=== PATIENT | male | born 2000 | race Caucasian/White ===

== ENCOUNTER 2021-02-16 22:13 | Emergency (ER) | payer OTHER ==
--- NOTE | 2021-02-16 23:31 | ED Physician Documentation ---
History of Present Illness - Stated complaint Stated Complaint: ETOH, N/V - Chief complaint Chief Complaint: Abd Pain - History obtained from History obtained from: EMS - Additonal information Additional information: 20-year-old man, previously healthy, presents with alcohol intoxication this evening. EMS reports that he took 10 shots of fireball and EMS was called due to acute intoxication. patient vomited on scene. intermittently tearful, laughing, grabbing at staff, and spitting. no further vomiting in the ED. EMS reports no trauma or head injury. history limited by intoxication. Review of Systems Unable to obtain: Intoxicated PD PAST MEDICAL HISTORY - Present Medications Home Medications: Ambulatory Orders Medication Instructions Recorded Confirmed No Known Home Medications 02/16/21 02/16/21 - Allergies Allergies/Adverse Reactions: Allergies Allergy/AdvReac Type Severity Reaction Status Date / Time No Known Drug Allergies Allergy Verified 02/16/21 22:29 PD ED PE NORMAL - Vitals Vital signs reviewed: Yes - General General: No acute distress, Well developed/nourished, Other (alert, sitting up in bed, intermittently laughing and tearful. clinically intoxicated) - HEENT HEENT: Atraumatic, PERRL, EOMI, Moist mucous membranes, Pharynx benign - Neck Neck: Supple, no meningeal sign - Cardiac Cardiac: RRR - Respiratory Respiratory: No respiratory distress, Clear bilaterally - Abdomen Abdomen: Non tender, Non distended - Derm Derm: Normal color - Extremities Extremities: No deformity - Neuro Neuro: No motor deficit, No sensory deficit - Psych Psych: Other (clinically intoxicated. labile affect (tearful then laughing). patient attempted to hold this physician's hand throughout exam despite verbal redirection. ) Results - Vitals Vitals: Oxygen O2 Source Room air - Labs Labs: Laboratory Tests 02/16/21 22:24 POC Whole Bld Glucose 111 H PD MEDICAL DECISION MAKING - ED course ED course: father at the bedside requesting that the patient be discharged home. Patient is still intoxicated but tolerating PO fluids, sitting up in bed, in NAD, and the father admits to drinking tonight as well though he appears clinically sober and is ambulating with steady gait. They will have a pedicab driver come pick them up. recommend oral hydration and to limit alcohol intake in future. return precautions given. Departure - Departure Disposition: 01 Home, Self Care Clinical Impression: Alcohol intoxication Condition: Stable Instructions: ED Alcohol Intoxication Comments: You are seen in the emergency department for alcohol intoxication. Please try to monitor your intake in future and drink lots of water when drinking alcohol. The recommended daily amount for adult men is 2 servings daily. Please follow up with your primary doctor. Return to the emergency department if you have other concerns. Discharge Date/Time: 02/17/21 00:08
[2021-02-16 23:39] VITALS: BP 138/77
== END 2021-02-17 00:08 | disposition home or self-care (01) ==
LOC: EDBD 22:13 → ED 22:13
DX: F10.129 Alcohol abuse with intoxication, unspecified (principal)
CPT/HCPCS: 99282; 99283

== ENCOUNTER 2022-05-27 06:33 | Day surgery (SDC) | payer OTHER ==
[~2022-05-27 06:33] MED LIST: CEFAZOLIN 2G/50ML 0.9% NS 2 GM/50 ML BAG IV ONE
--- NOTE | 2022-05-27 06:53 | ANESTHESIA ---
Pre-Anesthesia VS, & Labs - Diagnosis chronic cholecystitis - Procedure laparoscopic cholecystectomy Height: 5 ft 9 in - NPO >8 hours - Lab Results Lab results reviewed: Yes Home Medications and Allergies Home Medications: Ambulatory Orders Lisinopril [Zestril] 10 mg PO DAILY 05/20/22 Lisinopril [Zestril] 10 mg PO DAILY 05/20/22 Allergies/Adverse Reactions: Allergies Allergy/AdvReac Type Severity Reaction Status Date / Time No Known Drug Allergies Allergy Verified 02/16/21 22:29 Anes History & Medical History - Anesthetic History Anesthesia Complications: reports: No previous complications Family history of Anesthesia Complications: Denies Family history of Malignant Hyperthermia: Denies - Medical History Cardiovascular: reports: Hypertension Pulmonary: reports: None Gastrointestinal: reports: Cholelithiasis Urinary: reports: None Musculoskeletal: reports: None Endocrine/Autoimmune: reports: None Skin: reports: None Exam General: Alert, Oriented x3, Cooperative Dental: WNL Mouth Openin Fingerbreadth Neck Mobility: Normal Mallampati classification: II Thyromental Distance: 4-6 cm Respiratory: Lungs clear, Normal breath sounds, No respiratory distress Cardiovascular: Regular rate Neurological: Normal speech Mental/Cognitive Status: Alert/Oriented X3, Normal for patient Cognitive Status: Within normal limits Plan Anesthesia Type: General Consent for Procedure(s) Verified and Reviewed: Yes Code Status: Attempt Resuscitation ASA classification: 2-Mild systemic disease Is this case an emergency?: No
[2022-05-27] MEDS ORDERED: LACTATED RINGERS 1,000 ML IV ONE ×2 (06:57→09:48)
[2022-05-27] MEDS ORDERED: MIDAZOLAM 2 MG/2 ML VIAL ONE (07:05)
[2022-05-27] MEDS ORDERED: BUPIVACAINE 0.25% PF 30 ML VIAL ONE (07:05)
[2022-05-27] MEDS ORDERED: fentaNYL 100 MCG/2 ML VIAL ONE (07:05)
[2022-05-27] MEDS ORDERED: LIDOCAINE-PF 2% 10 ML AMP SUBQ ONE (07:06)
[2022-05-27] MEDS ORDERED: PROPOFOL 200 MG/20 ML VIAL IVP ONE ×2 (07:06→07:47)
[2022-05-27] MEDS ORDERED: ROCURONIUM 50 MG/5 ML VIAL ONE ×2 (07:07→08:17)
[2022-05-27] MEDS ORDERED: HYDROmorphone 0.5 MG/0.5 ML SYRINGE IVP PRN ×2 (07:17→09:32)
[2022-05-27] MEDS ORDERED: NALOXONE 0.4 MG/ML VIAL IVP PRN (07:17)
[2022-05-27] MEDS ORDERED: MORPHINE 2 MG/ML CARPUJECT IVP PRN (07:17)
[2022-05-27] MEDS ORDERED: fentaNYL 100 MCG/2 ML VIAL IVP PRN (07:17)
[2022-05-27] MEDS ORDERED: ONDANSETRON 4 MG/2 ML VIAL IVP PRN ×2 (07:17→09:32)
[2022-05-27] MEDS ORDERED: ePHEDrine 50 MG/ML VIAL IVP PRN (07:17)
[2022-05-27] MEDS ORDERED: METOCLOPRAMIDE 10 MG/2 ML VIAL IVP PRN (07:17)
[2022-05-27] MEDS ORDERED: ATROPINE ABBOJECT 1 MG/10 ML SYRINGE IVP PRN (07:17)
[2022-05-27] MEDS ORDERED: BUPIVACAINE 0.25% PF 30 ML VIAL SUBQ ONE (07:46)
[2022-05-27] MEDS ORDERED: DEXAMETHASONE 4 MG/ML VIAL ONE (07:47)
[2022-05-27] MEDS ORDERED: ACETAMINOPHEN 1,000 MG/100 ML 1,000 MG/100 ML BAG IV ONE (07:54)
[2022-05-27] MEDS ORDERED: LACTATED RINGERS 1,000 ML IV SCH (08:00)
[2022-05-27] MEDS ORDERED: SUGAMMADEX 200 MG/2 ML VIAL IVP ONE (08:45)
[2022-05-27] MEDS ORDERED: KETOROLAC 30 MG/ML VIAL ONE (09:27)
[2022-05-27] MEDS ORDERED: HYDROcod/ACETAM 5/325 MG TABLET PO PRN (09:32)
[2022-05-27] MEDS ORDERED: HYDROcod/ACETAM 5/325 MG TABLET ONE (10:05)
--- NOTE | 2022-05-27 10:06 | ANESTHESIA POST OP EVALUATION ---
Anesthesia Post Eval - Post Anesthesia Eval Vitals: Last Vital Signs Temp 36.6 C 05/27/22 09:57 Pulse 85 05/27/22 09:57 Resp 16 05/27/22 09:57 BP 133/79 H 05/27/22 09:57 Pulse Ox 100 05/27/22 09:57 O2 Flow Rate 0 05/27/22 06:58 CV Function Including HR & BP: Stable Pain Control: Satisfactory Nausea & Vomiting: Negative Mental Status: Baseline Respiratory Status: Airway Patent Hydration Status: Satisfactory Anesthesia Complications: None
[2022-05-27 10:20] VITALS: BP 126/64
--- NOTE | 2022-05-27 17:38 | OPERATIVE REPORT ---
Operative Report - General Procedure Date: 05/27/22 Planned Procedure: lap thomas Pre-Op Diagnosis: chronic cholecystitis Procedure Performed: lap thomas Post Op Diagnosis: chronic cholecystitis - Procedure Note Primary Surgeon: huyen akers Anesthesia Technique: General ET tube, Local Pathology: gallbladder Estimated Blood Loss (mL): 2 Drain/Tube Type: Other (none) Indications: chronic gallbladder pain with gallstone Findings: distended gallbladder encased in omentum. cystic duct and artery densely scared to one another Complications: none - Other Other Information/Narrative: The patient was properly identified, brought to the operating room and placed in supine position. Sequential compression devices were placed. General endotracheal anesthesia was induced. The patient was prepped and draped in a sterile fashion and given preoperative antibiotics. Local anesthetic was given to incision areas. An incision was made in the periumbilical area. Dissection proceeded down to fascia. The fascia was incised lifted upwards and abdomen entered with a Veress needle. CO2 was insufflated to a pressure of 15. An 11 mm trocar followed by a 30 degree scope was placed. There was no evidence of injury from Veress needle or trocar placement. Under direct vision 2 5 mm trochars were placed in the right upper quadrant and an 11 mm trocar was placed in the epigastrium. Body of the gallbladder was retracted anterior. Lateral attachments were partially taken down further mobilizing the gallbladder more anterior and away from the duodenum. The infundibulum of the gallbladder was then retracted right lateral and caudad. With minimal use of cautery a large bare cystic plate area or window was carefully created. The cystic duct was inspected from right lateral and left lateral positions. [] The cystic duct was then clipped at the gallbladder and 3 times slightly proximal and sharply divided. The cystic artery was clipped at the gallbladder and then 2 times slightly proximal and sharply divided. The gallbladder was mobilized off from the bed of the liver with hook cautery. The gallbladder was placed in Endo Catch bag and brought out through the epigastric trocar site. Hemostasis was assured. Trochars were removed under direct vision. Fascia at the larger trocar sites was closed with [id number] are running 0 Vicryl suture. Subcutaneous tissue was irrigated and skin closed with interrupted 4-0 Monocryl. Dressings were applied. Patient tolerated the procedure well was awakened and brought to recovery in good condition.
== END 2022-05-27 06:34 | disposition home or self-care (01) ==
LOC: SDS 06:33
PROVIDERS: ATTEND Surgery
PROC: 0FT44ZZ Resection of Gallbladder, Percutaneous Endoscopic Approach (ICD-10-PCS; principal; 2022-05-27 07:30)
DX: K81.1 Chronic cholecystitis (principal); I10 Essential (primary) hypertension
CPT/HCPCS: 47562; A9270; J0131; J0690; J7120

== ENCOUNTER 2022-07-10 08:47 | Outpatient (CLI) | payer OTHER ==
[2022-07-10 09:30] VITALS: BP 132/80
--- NOTE | 2022-07-10 09:30 | SLEEP CARE CONSULTATION ---
Information from patient questionnaire entered by Julio Avelar. I have reviewed and concur with the information entered by Julio Avelar. This document represents the service I personally performed and the decisions made by me, Minnie Bains ARNP. History of Present Illness Service Date and Time: 07/10/2022 0847 Reason for Visit: New patient Chief Complaint: reports: Snoring, Excessive daytime sleepiness, Fatigue Date of Onset: 5 months; snoring longer Usual bedtime: 10-11PM Time it takes to fall asleep: within 15 minutes Snores at night: Yes Observed to quit breathing while asleep: Yes Sleeps alone due to snoring: No Number of times waking at night: 1-2 Reasons for waking at night: reports: Snoring (not common), Gasping for air, Bathroom. denies: Choking Toss, Turn, or Twitch while sleeping: Yes Recalls having dreams: No Usually gets out of bed at: 630AM Feels refreshed in the morning: No Morning headache: Yes (4 days a week; RESOLVES AROUND NOON) Sleepy or fatigued during the day: Yes Ever fallen asleep while driving: No Takes day naps: Yes (3 days a week; 1-3 hours long) Dreams during day naps: No Prior sleep studies: No Additional HPI information: I had the pleasure of seeing BETHEL COELLO today regarding the possibility of him having a sleep disorder. His current complaints are excessive daytime sleepiness, fatigue and snoring. He states since he has noted waking up with headaches. He feels he is not breathing well, wakes up with soreness in chest sometimes. He feels tired throughout the day. He states after work he will sit down in room and fall asleep, sometimes for 3 hours. He then cannot go to sleep until much later that night. He has to set multiple alarms to wake himself up in the morning. He talked to his Dad who is on a PAP machine. His Dad encouraged him to talk to his doctor about his symptoms because they were similar to ones he experienced before he was diagnosed with apnea. - Parasomnia Symptoms Ever been unable to move upon waking from sleep: No Walks in sleep: No Talks in sleep: No Ever acted out dreams in sleep: No Ever felt weak in the knees when startled or emotional: No Bothered by creepy, crawly, restless sensations in legs: No Problems with memory or concentration: Yes (concentration, "space out a lot") Subjective Initial [place] Sleepiness Scale score: 13 (07/10/22) Past Medical History Past Medical History: reports: Hypertension, Other (cholecystectomy Apr 2022) Social History The patient's occupation is a AM. Patient is Single and lives in . Have you smoked in the past 12 months: No Alcohol use: No Caffeine use: Yes Caffeine amount and frequency: 200-300MG EVERY2-3 DAYS Family History Family history of sleep disordered breathing: Yes Family Hx Sleep Apnea: Mother: Snoring, Father: Snoring, Sleep apnea - Treated Allergies and Home Medications Known drug allergies: No Drug allergies reviewed: Yes Home medication list reviewed: Yes Allergy and home medication list: Allergies No Known Drug Allergies Allergy (Verified 07/09/22 12:48) Medications: Lisinopril 10 mg daily Review of Systems Weight gain over past 5 years: 60 Cardiovascular: reports: high blood pressure Gastrointestinal: denies: heartburn Neurological: reports: headaches. denies: head trauma Psychiatric: denies: anxiety, depression Ear/Nose/Throat: denies: dry mouth/throat, injury to nose, tonsillectomy Endocrine: denies: thyroid disease Immunologic: denies: allergies to food or environment Physical Exam Vital signs obtained and entered by: JULIO Nguyễn MA Blood Pressure: 132/80 (LEFT ARM) Cuff size: long Heart Rate: 84 O2 Saturation: 96 Height: 5 ft 9 in Weight: 261 lb 12.8 oz Body Mass Index: 38.6 BMI Classification: Obese Neck circumference: 16.5 Mouth and throat: narrow oropharynx Soft palate: normal Hard palate: normal Uvula: long Uvula visualization: 100% Mallampati Class I Tongue: enlarged in size with teeth vasquez on lateral edges Tonsils: 1+ Neck: normal w/o lymphadenopathy or thyromegaly Heart: regular rate and rhythm Lungs: clear bilaterally Impression and Plan 1. Suspected Obstructive Sleep Apnea-Hypopnea Syndrome, as suggested by a history of loud and irregular snoring, gasping or choking in sleep, morning headache, unrefreshed sleep, cognitive impairment, and excessive daytime sleepiness. Narrow oropharynx and obesity are common predisposing factors for obstructive sleep apnea-hypopnea syndrome. I recommend proceeding to polys omnography to confirm the diagnosis and to assess severity. If the patient has significant sleep disordered breathing, a manual CPAP titration study will also be performed to find the optimal treatment pressure. I informed the patient of what the sleep studies involve and after some discussion, obtained agreement to proceed. The pathophysiology of obstructive sleep apnea-hypopnea syndrome was discussed with the patient and health risks of cardiovascular and cerebrovascular disease if not treated. 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 Patient agreed to plan. * Schedule polysomnography * Avoid long distance driving or driving when feeling sleepy. * Avoid alcohol, sedative and muscle relaxant around bedtime. * Attempt to lose weight. * Review instructions provided by trained office staff on how to prepare for the sleep study. * Return for follow-up after sleep study completed. Counseling Topics: Weight loss health impact Visit Type: In Office Time Spent with Patient (minutes): 31 Provider Statement: I spent 100% of the Face to Face Visit with the patient with greater than 50% spent counseling the patient and coordination of care.
== END 2022-07-10 08:48 | disposition home or self-care (01) ==
LOC: SC 08:47
PROVIDERS: ATTEND Nurse Practitioner Family
DX: R06.83 Snoring (principal); R06.81 Apnea, not elsewhere classified; R51.9 Headache, unspecified; G47.8 Other sleep disorders; R41.89 Other symptoms and signs involving cognitive functions and awareness; G47.10 Hypersomnia, unspecified; E66.9 Obesity, unspecified; Z68.38 Body mass index [BMI] 38.0-38.9, adult
CPT/HCPCS: 99203; 99212

== ENCOUNTER 2022-07-22 20:45 | Outpatient (CLI) | payer OTHER | END 2022-07-22 20:46 | disposition home or self-care (01) | LOC: SC 20:45 | PROVIDERS: ATTEND Nurse Practitioner Family | DX: R06.83 Snoring (principal); G47.8 Other sleep disorders; R51.9 Headache, unspecified; G47.10 Hypersomnia, unspecified; R53.83 Other fatigue; I10 Essential (primary) hypertension | CPT/HCPCS: 95810 ==

== ENCOUNTER 2022-07-29 09:13 | Outpatient (CLI) | payer OTHER ==
[2022-07-29 08:48] VITALS: BP 130/83
--- NOTE | 2022-07-29 08:48 | SLEEP CARE CONSULTATION ---
Information from patient questionnaire entered by Rosalva Avelar. I have reviewed and concur with the information entered by Rosalva Avelar. This document represents the service I personally performed and the decisions made by , Minnie Bains ARNP. History of Present Illness Service Date and Time: 07/29/2022 0840 Initial [place] Sleepiness Scale score: 13 (07/10/22) Current [place] Sleepiness Scale score: 13 (07/29/22) Additional HPI information: BETHEL COELLO returns via video telehealth visit for follow up and results of the recently performed polysomnography. The patient was informed of the following findings: No significant sleep disordered breathing with an average AHI of 0.2 and sea oxygen saturation of 93%. I explained the pathophysiology behind obstructive sleep apnea. Patient does not have sleep apnea and was advised how weight gain could increase the risk of developing sleep apnea in the future. I strongly encouraged the patient to lose weight. Patient has moderate snoring. Snoring can be reduced by weight loss. Weight loss is best achieved with diet consult. Patient instructed to contact PCP for referral. Snoring can also be treated with an oral appliance from a dentist. Advised to check insurance coverage. In addition, an ENT evaluation can be do to see if other treatment is indicated. Patient does not drink alcohol. Patient was cautioned about risks of drowsy driving until sleepiness symptoms resolve. Patient denies drowsy driving. Sleep Study - Results Type of Sleep Study: Polysomnography (COMPLETED 07/20/22) Prior sleep studies: No Polysomnography/Home Sleep Study results: IMPRESSION: The quality of the study is good. The patient had reduced sleep efficiency due to a prolonged awakening in the second half of the night. The sleep architecture was relatively normal considering the first-night effect. Respiratory monitoring showed no significant sleep disordered breathing (AHI = 0.2) or hypoxia (sea oxygen saturation of 93%). The patient slept adequately in supine position (supine AHI = 0.2; non-supine = 0.00). Snore was moderate in intensity. There was no significant periodic leg movement of sleep. Cardiac rhythm was normal sinus rhythm without significant arrhythmia. No abnormal behavior (parasomnia) observed during the night. Allergies and Home Medications Known drug allergies: No Drug allergies reviewed: Yes Home medication list reviewed: Yes (no changes) Review of Systems Review of systems same as previous: Yes (no changes) Physical Exam Vital signs obtained and entered by: ROSALVA Nguyễn MA Blood Pressure: 130/83 (PER PT) Height: 5 ft 10 in (PER PT) Weight: 260 lb (PER PT) Body Mass Index: 37.3 BMI Classification: Obese Impression and Plan Snoring but no significant sleep disordered breathing. Patient advised that often weight loss will reduce snoring as well as apnea risk. An oral appliance can also be used for snoring. This would require a dental consultation. Patient cautioned not to use other online appliances as can cause bite issues. A list of accredited [facility] and one local dentist who makes oral appliances is available in office as needed. Patient is advised to check if insurance will cover. An ENT consult can also be helpful to determine if any other treatment is an option. * Attempt to lose weight * Return as needed for follow up. Counseling Topics: Weight loss health impact Visit Type: Telehealth Video Video Type: Doximity Patient Location: Home Location of Provider: Office Patient agrees and consents to this telehealth visit type: Yes Patient agrees to have their insurance billed: Yes Time Spent with Patient (minutes): 15 Provider Statement: I spent 100% of the Telehealth Video Call with the patient with greater than 50% spent counseling the patient and coordination of care.
== END 2022-07-29 09:14 | disposition home or self-care (01) ==
LOC: SC 09:13
PROVIDERS: ATTEND Nurse Practitioner Family
DX: R06.83 Snoring (principal); E66.9 Obesity, unspecified; Z68.37 Body mass index [BMI] 37.0-37.9, adult